=== PATIENT | male | born 1980 | race Caucasian/White ===

== ENCOUNTER 2018-02-04 10:37 | Day surgery (SDC) | payer BC ==
[~2018-02-04] VITALS: Ht 182.9 cm; Wt 68.4 kg
[2018-02-04] VITALS (7 sets, daily range): BP systolic 112–127; BP diastolic 57–74; PULSE 64–90; TEMP 97.1–97.7
[2018-02-04] MEDS ORDERED: NORCO 325 MG-51 TAB PO (14:31)
[2018-02-04] MEDS ORDERED: MOTRIN 600600 MG/TAB PO (14:31)
[2018-02-04] MEDS ORDERED: COLACE 100100 MG/CAP PO (14:31)
== END 2018-02-04 17:11 | disposition home or self-care (01) ==
LOC: SDCO 10:37
DX: K40.90 Unilateral inguinal hernia, without obstruction or gangrene, not specified as recurrent (principal); Z80.0 Family history of malignant neoplasm of digestive organs; Z80.3 Family history of malignant neoplasm of breast
CPT/HCPCS: A4314; C1781; J0690; J1100; J1885; J2270; J2405; J2704; J3010; J7120